=== PATIENT | female | born 1940 | race Caucasian/White ===

== ENCOUNTER → 2019-12-21 14:34 | Outpatient (CLI) | payer MEDICARE, OTHER, SELFPAY ==
--- NOTE | 2019-12-21 14:36 | DI.MRI.S_ITS ---
PROCEDURE: MR SHOULDER RT WO CON INDICATIONS: Right shoulder pain, right bicep pain TECHNIQUE: Noncontrast oblique coronal T2 fast spin echo with fat saturation, oblique sagittal T1 spin echo and T2 fast spin echo with fat saturation, axial T1 spin echo and T2 fast spin echo with fat saturation through the shoulder. COMPARISON: None. FINDINGS: Image quality: Excellent. Rotator cuff: There is diffuse increased signal evident involving the supraspinatus, infraspinatus, and subscapularis tendons with areas of low to moderate grade articular surface partial thickness tearing. No complete tears are appreciated. The teres minor tendon is intact. No significant asymmetric atrophy of the rotator cuff muscles is appreciated. Bones and bursae: No acute fracture or dislocation is evident. No suspicious osseous lesions are appreciated. There are mild degenerative changes of the glenohumeral joint with an associated small to moderate-sized glenohumeral joint effusion. Moderate degenerative changes of the acromioclavicular joint are present. A small amount of fluid is contained within the subacromial subdeltoid bursa. Capsule and soft tissues: Evaluation of the labrum and the glenohumeral ligaments is suboptimal without intra-articular contrast. However, there does appear to be a very small superior labral tear extending from approximately the 10 o'clock position of the anterosuperior labrum to the 1 o'clock position of the posterosuperior labrum. There is a full-thickness tear of the long head of the biceps tendon with prominent distal retraction beyond the bicipital groove, estimated at approximately 9-10 cm. No acute injuries are suspected involving the glenohumeral ligaments. IMPRESSION: 1. Full-thickness tear of the long head of the biceps tendon with prominent distal retraction. 2. Small superior labral tear. 3. Low to moderate grade articular surface partial thickness tearing of the major rotator cuff tendons with corresponding tendinopathy, as described. 4. Mild to moderate degenerative changes of the right shoulder joints. 5. Glenohumeral joint effusion. 6. Small amount of fluid within the subacromial subdeltoid bursa is present. Dictated by: Camron Ly M.D. on 12/21/2019 at 14:50 Approved by: Camron Ly M.D. on 12/21/2019 at 14:55
== END ==
PROVIDERS: PCP Nurse Practitioner; Referring Provider Nurse Practitioner; Visit Provider Nurse Practitioner
DX: M25.511 Pain in right shoulder (principal); S46.111A Strain of muscle, fascia and tendon of long head of biceps, right arm, initial encounter; S43.431A Superior glenoid labrum lesion of right shoulder, initial encounter; M25.411 Effusion, right shoulder
CPT/HCPCS: 73221

== ENCOUNTER → 2021-01-30 13:13 | Outpatient (CLI) | payer MEDICARE, OTHER, SELFPAY ==
--- NOTE | 2021-01-30 | DI.MG.S_ITS ---
BILATERAL DIGITAL DIAGNOSTIC MAMMOGRAM 3D/2D: 01/30/2021 CLINICAL: Short term follow up, due bilateral. Comparison is made to exams dated: 07/21/2020 mammogram, 12/07/2019 mammogram, and 04/08/2017 mammogram - outside location. There are scattered fibroglandular elements in both breasts. No significant masses, calcifications, or other findings are seen in either breast. IMPRESSION: INCOMPLETE: NEEDS ADDITIONAL IMAGING EVALUATION There is no abnormality seen in the left breast to correspond with the area of clinical concern and previously described mammography finding at the lower inner quadrant of the left breast, however, ultrasound is recommended to confirm resolution of the previously described sonographic finding correlating to this region. This is scheduled to immediately follow this exam. This exam was interpreted at Station ID: [id number]. NOTE: For mammograms, a report in lay terms will be sent to the patient. Approximately 15% of breast malignancies will not be visualized mammographically. In the management of a palpable breast mass, a negative mammogram must not discourage biopsy of a clinically suspicious lesion. Electronically Signed By: Arturo Sylvester M.D. aty/:01/30/2021 15:03:48 ACR BI-RADS Category 0: Incomplete [id number]
--- NOTE | 2021-01-30 13:16 | DI.US.S_ITS ---
ULTRASOUND OF LEFT BREAST: 01/30/2021 CLINICAL: Patient returns for a 6 month follow up of the left breast. Comparison is made to exams dated: 01/30/2021 mammogram - [facility], 07/21/2020 mammogram, 07/21/2020 ultrasound, 12/07/2019 ultrasound, 12/07/2019 mammogram, and 04/08/2017 mammogram - outside location. Color flow and real-time ultrasound of the left breast were performed. Herrera scale images of the real-time examination were reviewed. No significant abnormalities were seen sonographically in the left breast. Previously described irregular fluid collection at the 9 o'clock position has resolved. IMPRESSION: NEGATIVE There is no sonographic evidence of malignancy. There is no abnormality seen in the left breast to correspond with the area of clinical concern and previous ultrasound finding at 9 o'clock, however, recommend clinical follow up for persistent or recurrent symptoms, or development of any clinically suspicious findings. A 1 year screening mammogram is recommended. Findings and recommendations were conveyed to the patient during today's evaluation. This exam was interpreted at Station ID: [id number]. Electronically Signed By: Arturo Sylvester M.D. aty/:01/30/2021 15:07:38 Ultrasound BI-RADS: 1 Negative
== END ==
PROVIDERS: PCP Nurse Practitioner; Referring Provider Nurse Practitioner; Visit Provider Nurse Practitioner
DX: R92.8 Other abnormal and inconclusive findings on diagnostic imaging of breast (principal)
CPT/HCPCS: 76642; 77065; 77066; G0279

== ENCOUNTER → 2022-12-11 13:35 | Outpatient (CLI) | payer MEDICARE, OTHER, SELFPAY | PROVIDERS: PCP Nurse Practitioner; Referring Provider Nurse Practitioner; Visit Provider Nurse Practitioner | DX: R00.2 Palpitations (principal); R42 Dizziness and giddiness | CPT/HCPCS: 93242 ==

== ENCOUNTER → 2022-12-20 | Outpatient (CLI) | payer MEDICARE, OTHER, SELFPAY ==
--- NOTE | 2022-12-20 | DI.ECHO.S_ITS ---
[facility] +---------+ : : [address] : : : : [id number] : : : : Phone: [phone]+ Echocardiogram Report + + :Name: CARLOTA SIMPSON Study Date: 12/20/2022 Height: 60 in : :[facility] ReadingLocation: Weight: 142 lb : : Gender: Female BSA: 1.6 m2 : :: 1940 Age: 82 yrs BP: 167/93 mmHg: :Reason For Study: Dizziness, Palpitations : :Ordering Physician: SUE, : :PAUL Performed By: Deborah Rodríguez : :Referring: PAUL ROGERS : + + Interpretation Summary The left ventricle is normal in size. Left ventricular systolic function is normal. The ejection fraction is estimated to be 60-65%. There are no obvious focal wall motion abnormalities noted but poor endocardial definition reduces the sensitivity for the detection of such. Diastolic parameters suggest a relaxation abnormality of the left ventricle, consistent with probable normal filling pressures. The right ventricle is normal size. The right ventricular systolic function is normal. The right ventricular systolic pressure is estimated to be at least 23 mmHg based on an estimated right atrial pressure of 3 mm Hg. The left atrial size is normal. Right atrium is small. There is mild to moderate mitral regurgitation. There is no other significant valvular heart disease. The aortic root is normal size. Procedure: A two-dimensional transthoracic echocardiogram with color flow and Doppler was performed. The study quality was technically adequate. There is no prior echocardiogram noted for this patient. The patient was in normal sinus rhythm during the exam. Left Ventricle: The left ventricle is normal in size. Left ventricular systolic function is normal. The ejection fraction is estimated to be 60-65%. There are no obvious focal wall motion abnormalities noted but poor endocardial definition reduces the sensitivity for the detection of such. Diastolic parameters suggest a relaxation abnormality of the left ventricle, consistent with probable normal filling pressures. Right Ventricle: The right ventricle is normal size. The right ventricular systolic function is normal. Atria: The left atrial size is normal. Right atrium is small. There is no Doppler evidence for an interatrial shunt. Mitral Valve: The mitral valve leaflets are mildly calcified. The mitral valve mean gradient is 3 mmHg. There is mild to moderate mitral regurgitation. Aortic Valve: The aortic valve is trileaflet. The aortic valve opens well. There is no aortic valve stenosis. No aortic regurgitation is present. Tricuspid Valve: The tricuspid valve is normal. There is no tricuspid stenosis. There is trace tricuspid regurgitation. The right ventricular systolic pressure is estimated to be at least 23 mmHg based on an estimated right atrial pressure of 3 mm Hg. Pulmonic Valve: The pulmonic valve leaflets are thin and pliable; valve motion is normal. There is no pulmonic valvular stenosis. There is trace pulmonic regurgitation. There is no other significant valvular heart disease. Great Vessels: The aortic root is normal size. The ascending aorta is normal in size. The pulmonary artery is normal size. The IVC is of normal diameter and collapses greater than 50% with a sniff. This suggests a low right atrial pressure of 3 mm Hg. Pericardium/ Pleura There is no pericardial effusion. There is no pleural effusion. MMode/2D Measurements & Calculations LVIDd: 4.7 cm LVOT diam: 1.6 cm LVIDs: 3.6 cm Ao root diam: 2.5 cm FS: 23.4 % asc Aorta Diam: 3.1 cm IVSd: 0.90 cm LVPWd: 0.80 cm LV mays. diameter/BSA (cm/m^2): 2.9 LV sys. diameter/BSA (cm/m^2): 2.2 LA A4 area: 14.5 cm2 RA long axis: 3.4 cm RA area: 6.5 cm2 RA vol: 10.5 ml RA : 6.5 ml/m2 RVD1 (basal): 3.3 cm LVLs ap4: 4.5 cm LVLd ap2: 5.6 cm TAPSE_phl: 2.7 cm LVLs ap2: 4.6 cm Doppler Measurements & Calculations Ao V2 max: 159.0 cm/sec LVOT Max Roel: 124.0 cm/sec Ao V2 mean: 91.6 cm/sec LV V1 max P.2 mmHg Ao max P.0 mmHg LV V1 VTI: 27.5 cm Ao mean P.0 mmHg ORION(I,D): 1.6 cm2 Ao V2 VTI: 33.8 cm ORION(V,D): 1.6 cm2 sev ratio: 0.81 ORION indexed to BSA (cm^2/m^2): 1.0 MV E max roel: 103.0 cm/sec TR max roel: 226.0 cm/sec MV A max roel: 114.0 cm/sec TR max P.4 mmHg MV E/A: 0.90 PA V2 max: 106.0 cm/sec Med Peak E' Roel: 6.7 cm/sec PA V2 mean: 70.6 cm/sec E/E' med: 15.4 PA mean P.0 mmHg Lat Peak E' Roel: 6.5 cm/sec PA pr(Accel): 38.5 mmHg E/E' lat: 15.9 E/e' average: 15.7 MV dec time: 0.26 sec MVA(VTI): 1.2 cm2 MV V2 mean: 77.4 cm/sec SV(LVOT): 55.3 ml MV mean P.0 mmHg MV V2 VTI: 47.4 cm AV VR_phl: 0.94 MV P1/2t-pr_phl: 75.0 msec ORION(VTI)/BSA_phl: 1.0 Reading Physician:04:44 PM
--- NOTE | 2022-12-21 02:39 | DI.NM.S_ITS ---
DATE OF SERVICE: 12/20/2022 PROCEDURE: Pharmacological perfusion study. INDICATIONS: Chest pain with underlying hypertension, hyperlipidemia. RADIOPHARMACEUTICAL: 27.5 millicurie technetium-99m Myoview IV was injected at stress and 9.6 millicurie technetium-99m Myoview IV was injected at rest. CARDIAC STRESS: The patient underwent IV Lexiscan perfusion study under the supervision of an attending staff using standard IV Lexiscan protocol. She remained hemodynamically stable. Baseline blood pressure 155/75. Baseline rhythm sinus with some nonspecific ST-T changes and first-degree AV block. During stress, no convincing new ischemic changes seen. Rare PVCs. The patient had minimal dyspnea and substernal jaw and chest pressure during Lexiscan infusion which lasted about 30 seconds. RAW DATA: There is a breast shadow seen. GATED STUDY: Stress LV ejection fraction 87% without any obvious wall motion abnormalities. Resting end-diastolic volume 82 mL. TID ratio 0.94, which is within normal limits. Lung/heart ratio 0.35, which is within normal limits. MYOCARDIAL PERFUSION SCAN: Stress supine and resting supine images were compared to each other. There is no stress prone images. Stress supine and resting supine images revealed predominantly fixed, small size, mildly decreased perfusion of anteroapex without any reversible ischemia. CONCLUSION: The patient has small size fixed anteroapical defect. There are no prone images. Large breast shadow seen during raw images. Anteroapical segments moving well. There are no obvious wall motion abnormalities. The stress LV ejection fraction 87%. Hence, most likely due to breast attenuation artifact. There is no reversible ischemia; however, one cannot rule out the possibility of small nontransmural myocardial infarction of anteroapex. Overall, low-risk myocardial perfusion scan. Correlate clinically. Terrie Viera - DUSTIN/margarette/jazzy doc#: [id number]/job#: [id number] dd: 12/20/2022 17:22:00 dt: 12/21/2022 02:31:00 DICTATING MD/COPIES TO: Steven Balderas MD COPIES MNE: MONA;
== END ==
PROVIDERS: PCP Nurse Practitioner; Referring Provider Nurse Practitioner; Visit Provider Nurse Practitioner
DX: I34.0 Nonrheumatic mitral (valve) insufficiency (principal); R00.2 Palpitations; R42 Dizziness and giddiness; R07.9 Chest pain, unspecified; I10 Essential (primary) hypertension; E78.5 Hyperlipidemia, unspecified
CPT/HCPCS: 78452; 93017; 93306; A9502; J2785

== ENCOUNTER → 2024-07-24 10:43 | Outpatient (CLI) | payer MEDICARE, OTHER, SELFPAY ==
--- NOTE | 2024-07-24 10:46 | DI.MRI.S_ITS ---
PROCEDURE: MR LUMBAR SPINE WO CON INDICATIONS: lumbar stenosis with neurogenic claudication TECHNIQUE: Noncontrast sagittal T1 spin echo and T2 fast echo, sagittal STIR, and T2 fast spin echo through the lumbar spine. In cases with scoliosis, additional coronal T2 fast spin echo may be performed. COMPARISON: None. FINDINGS: Image quality: Excellent. Alignment and Curvature: Grade 1 anterior spondylolisthesis L3-4 and L4-5 Bone Marrow: Linear marrow edema involving the 2nd sacral element reflects sacral fracture. Degenerative endplate changes noted in the lumbar spine. Spinal Cord: Conus medullaris terminates at the L1 level. Visualized cord demonstrates normal signal and size. Paraspinous Soft Tissues: No paravertebral masses. T12-L1: Normal appearance. L1-L2: Normal appearance. L2-L3: Disc bulge and arthropathy. Mild central stenosis. Moderate left and mild right foraminal stenosis L3-L4: Disc bulge and arthropathy. Moderate central stenosis. Moderate bilateral foraminal stenosis L4-L5: Disc bulge and arthropathy. Mild central stenosis. No foraminal stenosis L5-S1: Disc bulge and arthropathy. No central or foraminal stenosis IMPRESSION: Focal edema in the 2nd sacral element consistent with sacral fracture. Consider follow-up CT confirmation. Multilevel degenerative disc disease and arthropathy results in varying degrees of central and foraminal stenosis including moderate central and foraminal stenosis L3-4. Grade 1 degenerative spondylolisthesis L3-4 and L4-5 Approved by: John Tyler M.D. on 07/26/2024 at 18:15
== END ==
LOC: MRI 10:45
PROVIDERS: Referring Provider Physical Medicine & Rehabilitation; Visit Provider Physical Medicine & Rehabilitation
DX: M43.16 Spondylolisthesis, lumbar region (principal); M48.062 Spinal stenosis, lumbar region with neurogenic claudication; M51.369 Other intervertebral disc degeneration, lumbar region without mention of lumbar back pain or lower extremity pain; M51.379 Other intervertebral disc degeneration, lumbosacral region without mention of lumbar back pain or lower extremity pain; M47.816 Spondylosis without myelopathy or radiculopathy, lumbar region; M47.817 Spondylosis without myelopathy or radiculopathy, lumbosacral region
CPT/HCPCS: 72148

== ENCOUNTER 2024-08-24 10:17 | Outpatient (CLI) | payer MEDICARE, OTHER, SELFPAY ==
[2024-08-24] VITALS (8 sets, daily range): BP systolic 142–199; BP diastolic 73–90; PULSE 63–71; RESP 13–18; TEMP 36.3; O2SAT 95–100
[2024-08-24] MEDS: MIDAZOLAM 2 MG/2 ML VIAL IV (11:12)
[2024-08-24] MEDS: BUPIVACAINE 0.25% (PF) VIAL 2 ML INJ (11:18)
[2024-08-24] MEDS: iopamidoL 15 ML VIAL 3 ML INJ (11:18)
[2024-08-24] MEDS: BETAMETHASONE 30 MG/5 ML MDV 12 MG INJ (11:18)
[2024-08-24] MEDS: BETAMETHASONE 30 MG/5 ML MDV 6 MG INJ (11:19)
--- NOTE | 2024-08-24 11:29 | P.PCN_ITS ---
Date/Time/Diagnoses Date of procedure: 08/24/24 Time of procedure: 11:29 Pre-procedure diagnosis: 1. HNP WITH RADICULAR FEATURES, 2. MULTILEVEL CENTRAL STENOSIS, Post-procedure diagnosis: same Procedure Notes Procedure: 1. FLUOROSCOPICALLY GUIDED CONTRAST CONTROLLED INTERLAMINAR EPIDURAL STEROID INJECTION -L4/5 Indications: Terrie is referred for treatment of Bilateral Foraminal Stenosis R>L LE symptoms. Physician: Ramin Orellana Total Fluoroscopy time (seconds): 7 Total sedation minutes: 13 Complications: none Procedure in detail & Post-procedure care: FINDINGS Multilevel Central Spinal Stenosis with Nerve Root Compression DESCRIPTION OF PROCEDURE Fluoroscopically guided, contrast-controlled L4/5 translaminar epidural steroid injection. Following review of allergy and review of potential side effects and complications, including, but not necessarily limited to, infection, allergic reaction, local tissue breakdown, temporary as well as permanent nerve injury, paralysis, stroke and possible , the patient indicated that the patient understood and agreed to proceed. An informed consent document was signed by the patient, witnessed by a nurse, and placed in the patient's chart. Additionally, other treatment options including modalities, medications, and physical therapy were reviewed with the patient. After review of previous anaesthesic history and IV conscious sedation the patient was deemed safe to proceed with today?s procedure with IV conscious sedation as ASA class II designation. Safety time-out was performed to confirm patient ID, procedure to be performed and site of procedure. IV sedation was accomplished with a combination of 2mg of Versed was administered by the RN after DO order, titrated to patient comfort during the course of the procedure while the patient remained responsive to all verbal commands In the prone position, following sterile prep and drape of the lumbar region, the L4/5 translaminar space was identified fluoroscopically. The skin was anesthetized via a 25-gauge, 1.5inch needle with 1% lidocaine solution. At this point, a 22-gauge short bevel spinal needle was atraumatically introduced and advanced under fluoroscopic guidance into the region of the L4/5 translaminar space. Depth was confirmed on lateral view. Radiological data, including multiple fluoroscopic views of the lumbar spine, reveal a spinal needle at the L4/5 translaminar space. Lateral views then show placement of the needle in the epidural space. Subsequent views show contrast material flowing superiorly and inferiorly in the epidural space. No vascular or intrathecal uptake is observed. At this point, using loss of resistance technique with saline and air, the epidural space was entered. This was confirmed following negative aspiration with injection of approximately 1.5cc of Isovue 200, showing excellent epidural flow without vascular or intrathecal uptake. At this point, 1cc of 1% lidocaine solution combined with 3cc or 18mg betamethasone was injected without incident. The patient tolerated the procedure well without signs or symptoms of complications prior to transfer to the recovery area continued monitoring without incident. The patient was then transferred to the recovery area where they were observed for an appropriate period of time after the injection. The patient reported a VAS score of 8 prior to the procedure and a post- procedure VAS of 1. POST OP INSTRUCTIONS The patient was provided a Pain Log to continue to record their response to the target-specific procedure prior to follow-up visit with their referring physician. Additionally, specific post-injection care instructions and a contact number to our office were provided if concerns arise regarding possible complications associated with the procedure are suspected.
== END 2024-08-24 11:45 | disposition home or self-care (01) ==
PROVIDERS: Referring Provider Physical Medicine & Rehabilitation; Visit Provider Physical Medicine & Rehabilitation
DX: M51.16 Intervertebral disc disorders with radiculopathy, lumbar region (principal); M48.061 Spinal stenosis, lumbar region without neurogenic claudication
CPT/HCPCS: 62323; 99152; J0702; J2250; J3490

== ENCOUNTER 2024-10-07 13:16 | Outpatient (CLI) | payer MEDICARE, OTHER, SELFPAY ==
[2024-10-07] VITALS (10 sets, daily range): BP systolic 115–186; BP diastolic 73–84; PULSE 62–72; RESP 14–19; TEMP 36.6; O2SAT 96–100
[2024-10-07] MEDS: MIDAZOLAM 2 MG/2 ML VIAL IV (13:58)
[2024-10-07] MEDS: iopamidoL 15 ML VIAL 3 ML INJ (14:04)
[2024-10-07] MEDS: BUPIVACAINE 0.5% (PF) 10 ML VIAL 5 ML INJ (14:04)
[2024-10-07] MEDS: LIDOCAINE 1% 20 ML 5 ML INJ (14:04)
[2024-10-07] MEDS: MIDAZOLAM 2 MG/2 ML VIAL 1 MG IV (14:08)
--- NOTE | 2024-10-07 14:27 | P.PCN_ITS ---
Date/Time/Diagnoses Date of procedure: 10/07/24 Time of procedure: 14:27 Pre-procedure diagnosis: FACET ARTHROPATHY Post-procedure diagnosis: same Procedure Notes Procedure: 1. BILATERAL L3, L4 AND L5 DIAGNOSTIC MB BLOCKS Indications: Terrie is referred by Dr. Lewis for treatment of Bilateral Axial LBP. Physician: Ramin Orellana Total Fluoroscopy time (seconds): 12 Total sedation minutes: 20 Complications: none Procedure in detail & Post-procedure care: DESCRIPTION OF PROCEDURE Fluoroscopically guided, contrast-controlled bilateral L3, L4 AND L5 medial branch blocks with 0.5cc of 0.5% Marcaine. Following review of allergy and review of potential side effects and complications, including, but not necessarily limited to, infection, allergic reaction, local tissue breakdown, nerve injury, paralysis, stroke and possible , the patient indicated that the patient understood and agreed to proceed. An informed consent document was signed by the patient, witnessed by a nurse, and placed in the patient's chart. After review of previous anaesthesic history and IV conscious sedation the patient was deemed safe to proceed with today's procedure with IV conscious sedation as ASA class II designation. Safety time-out was performed to confirm patient ID, procedure to be performed and site of procedure. IV sedation was accomplished with a combination of 3mg of Versed was administered by the RN after DO order, titrated to patient comfort during the course of the procedure while the patient remained responsive to all verbal commands In the prone position, following sterile prep and drape of the lumbar region, the right L3, L4 AND L5 anatomical location of the medial branch of the dorsal ramus was identified fluoroscopically. Subsequently an anesthetic skin wheal using 1% lidocaine solution was initiated at each of the anatomical spots. Subsequently then a 22-gauge 3.5-inch spinal needle was atraumatically introduced and advanced under fluoroscopic guidance at each of the corresponding sites at the right L3, L4 and L5 MB. After negative aspiration, 0.2cc of Isovue 200 was injected, confirming placement without vascular or intrathecal uptake. Subsequently then 0.5cc of 0.5% Marcaine solution was injected at each of the corresponding sites at the right L3, L4 and L5 medial branch locations. The identical procedure was replicated on the left. The patient tolerated the proc edure well without signs or symptoms of complications. The patient tolerated the procedure well without signs or symptoms of complications prior to transfer to the recovery area continued monitoring without incident. Post-procedure, the patient was monitored initiating provocative activities to measure the amount of relief from block of the facetogenic pain. The patient reported a VAS of 7 prior to the procedure and a post-procedure VAS of 1. It has been a pleasure to assist in the diagnostic and therapeutic care of your patient. POST OP INSTRUCTIONS The patient was provided with a Pain Log to complete over the next several hours and subsequent days prior to the patient's follow up with the ordering physician. If the patient has artificial cherry maker relief to the solution applied, then they may be a candidate for medial branch rhizotomy. The patient is aware, was provided, once again, with a Pain Log and will follow up with the referring physician for review and clinical correlation
== END 2024-10-07 14:41 | disposition home or self-care (01) ==
LOC: RAD 13:17
PROVIDERS: PCP Student in an Organized Health Care Education/Training Program; Referring Provider Student in an Organized Health Care Education/Training Program; Visit Provider Physical Medicine & Rehabilitation
DX: M47.816 Spondylosis without myelopathy or radiculopathy, lumbar region (principal)
CPT/HCPCS: 64493; 64494; 99152; J2250

== ENCOUNTER 2024-11-04 10:14 | Outpatient (CLI) | payer MEDICARE, OTHER, SELFPAY ==
[2024-11-04] VITALS (9 sets, daily range): BP systolic 128–178; BP diastolic 67–86; PULSE 61–72; RESP 14–18; TEMP 36.1; O2SAT 97–100
[2024-11-04] MEDS: MIDAZOLAM 2 MG/2 ML VIAL IV ×2 (11:40→11:45)
[2024-11-04] MEDS: LIDOCAINE 1% 20 ML 5 ML INJ (11:49)
[2024-11-04] MEDS: iopamidoL 15 ML VIAL 3 ML INJ (11:50)
[2024-11-04] MEDS: LIDOCAINE 2% INJ MDV 20ML 5 ML INJ (11:50)
--- NOTE | 2024-11-04 12:03 | P.PCN_ITS ---
Date/Time/Diagnoses Date of procedure: 11/04/24 Time of procedure: 12:03 Pre-procedure diagnosis: 1. FACET ARTHROPATHY Post-procedure diagnosis: same Procedure Notes Procedure: 1. BILATERAL L3, L4 AND L5 DIAGNOSTIC MB BLOCKS Indications: Terrie is referred by Dr. Lewis for treatment of Bilateral Axial LBP. Physician: Ramin Orellana Total Fluoroscopy time (seconds): 14 Total sedation minutes: 15 Complications: none Procedure in detail & Post-procedure care: DESCRIPTION OF PROCEDURE Fluoroscopically guided, contrast-controlled bilateral L3, L4 and L5 medial branch blocks with 0.5cc of 2% Lidocaine. Following review of allergy and review of potential side effects and complications, including, but not necessarily limited to, infection, allergic reaction, local tissue breakdown, nerve injury, paralysis, stroke and possible , the patient indicated that the patient understood and agreed to proceed. An informed consent document was signed by the patient, witnessed by a nurse, and placed in the patient's chart. After review of previous anaesthesic history and IV conscious sedation the patient was deemed safe to proceed with today's procedure with IV conscious sedation as ASA class II designation. Safety time-out was performed to confirm patient ID, procedure to be performed and site of procedure. IV sedation was accomplished with a combination of 4mg of Versed was administered by the RN after DO order, titrated to patient comfort during the course of the procedure while the patient remained responsive to all verbal commands In the prone position, following sterile prep and drape of the lumbar region, the right L3, L4 and L5 anatomical location of the medial branch of the dorsal ramus was identified fluoroscopically. Subsequently an anesthetic skin wheal using 1% lidocaine solution was initiated at each of the anatomical spots. Subsequently then a 22-gauge 3.5-inch spinal needle was atraumatically introduced and advanced under fluoroscopic guidance at each of the corresponding sites at the right L3, L4 and L5 MB. After negative aspiration, 0.2cc of Isovue 200 was injected, confirming placement without vascular or intrathecal uptake. Subsequently then 0.5cc of 2% Lidocaine solution was injected at each of the corresponding sites at the right L3, L4 and L5 medial branch locations. The identical procedure was replicated on the left. The patient tolerated the pr ocedure well without signs or symptoms of complications. The patient tolerated the procedure well without signs or symptoms of complications prior to transfer to the recovery area continued monitoring without incident. Post-procedure, the patient was monitored initiating provocative activities to measure the amount of relief from block of the facetogenic pain. The patient reported a VAS of 7 prior to the procedure and a post-procedure VAS of 1. It has been a pleasure to assist in the diagnostic and therapeutic care of your patient. POST OP INSTRUCTIONS The patient was provided with a Pain Log to complete over the next several hours and subsequent days prior to the patient's follow up with the ordering physician. If the patient has carry in worker relief to the solution applied, then they may be a candidate for medial branch rhizotomy. The patient is aware, was provided, once again, with a Pain Log and will follow up with the referring physician for review and clinical correlation
== END 2024-11-04 12:25 | disposition home or self-care (01) ==
PROVIDERS: PCP Student in an Organized Health Care Education/Training Program; Referring Provider Physical Medicine & Rehabilitation; Visit Provider Physical Medicine & Rehabilitation
DX: M47.816 Spondylosis without myelopathy or radiculopathy, lumbar region (principal)
CPT/HCPCS: 64493; 64494; 99152; J2250

== ENCOUNTER 2024-12-28 10:24 | Outpatient (CLI) | payer MEDICARE, OTHER, SELFPAY ==
[2024-12-28] VITALS (13 sets, daily range): BP systolic 141–187; BP diastolic 60–85; PULSE 64–74; RESP 15–19; TEMP 36.1; O2SAT 95–100
[2024-12-28] MEDS: MIDAZOLAM 2 MG/2 ML VIAL IV ×3 (11:58→12:17)
[2024-12-28] MEDS: BUPIVACAINE 0.5% (PF) 10 ML VIAL 5 ML INJ (12:06)
[2024-12-28] MEDS: LIDOCAINE 1% 20 ML 5 ML INJ (12:07)
--- NOTE | 2024-12-28 12:43 | P.PCN_ITS ---
Date/Time/Diagnoses Date of procedure: 12/28/24 Time of procedure: 12:43 Pre-procedure diagnosis: 1. RECALCITRANT FACET ARTHROPATHY Post-procedure diagnosis: same Procedure Notes Procedure: 1. BILATERAL L3, L4 AND L5 MEDIAL BRANCH RADIOFREQUENCY NEUROTOMY Indications: Terrie is referred by Dr. Toribio for treatment of facet arthropathy. Physician: Ramin Orellana Total Fluoroscopy time (seconds): 17 Total sedation minutes: 37 Complications: none Procedure in detail & Post-procedure care: DESCRIPTION OF PROCEDURE Bilateral L3, L4 and L5 medial branch radiofrequency neurotomy The patient is well known to this clinic having undergone previous facet injections with good but temporary relief. The patient has experienced appropriate, concordant relief with previous facet and median branch blocks but the patient's pain has been recalcitrant to further conservative measures. Therefore, based upon the patient's relief and persistent symptoms, the patient is considered an appropriate candidate for facet rhizotomy. All of the patient's questions regarding the risks versus benefits of the procedure, including, but not limited to, bleeding, infection, temporary as well as lasting nerve injury, paralysis, stroke, and , as well treatment alternatives were answered to satisfaction. After obtaining informed consent, denial of pertinent drug allergies, as well as being made aware of the potential risks of bleeding, infection, spinal cord trauma, paralysis, temporary and permanent nerve damage, seizure, stroke, and possible , the patient was brought to the fluoroscopy suite and positioned prone on the fluoroscopy table. After review of previous anaesthesic history and IV conscious sedation the patient was deemed safe to proceed with today's procedure with IV conscious sedation as ASA class II designation. Safety time-out was performed to confirm patient ID, procedure to be performed and site of procedure. IV sedation was accomplished with a combination of 6mg of Versed administered by the RN after DO order, titrated to patient comfort during the course of the procedure while the patient remained responsive to all verbal commands. The lumbar region was prepped in usual sterile fashion and covered with a fenestrated drape in the usual sterile fashion. Appropriate monitors applied including pulse oximeter, pulse, and blood pressure for regular monitoring throughout the procedure. After local infiltration using 1% lidocaine, under fluoroscopic guidance, a 10- cm RF insulated needle with a 10-mm active tip was positioned parallel to the junction of the right the superior articulating process where the L5 medial branch resides. Needle placement was confirmed with motor stimulation of .5v on the right which produced local stimulation without radicular component. The stimulation was then increased to 2v with, once again, only local multifidus stimulation without radicular component. The needle was then removed and the identical procedure was performed along the length of the right L4 medial branch with motor stimulation at .7v on the right. The identical procedure was once again performed along the length of the right L3 and medial branch with motor stimulation of .5v on the right. The medial branches were then anesthetised with 0.5% marcaine. This was then followed by two discreet lesions performed at 80 degrees Celsius for 90 seconds each. The identical procedures were repeated on the left. The patient tolerated the procedure well without signs or symptoms of complications prior to transfer to the recovery area continued monitoring witho ut incident. The patient was then transferred to the recovery area where they were observed for an appropriate period of time after the injection. The patient reported a VAS score of 8 prior to the procedure and a post-procedure VAS of 1. POST OP INSTRUCTIONS The patient was provided a Pain Log to continue to record the patient's response to the target-specific procedure prior to the patient's follow-up visit with the referring physician. Additionally, specific post-injection care instructions and a contact number to our office were provided if concerns arise regarding possible complications associated with the procedure are suspected.
== END 2024-12-28 13:04 | disposition home or self-care (01) ==
LOC: RAD 10:25
PROVIDERS: PCP Student in an Organized Health Care Education/Training Program; Referring Provider Physical Medicine & Rehabilitation; Visit Provider Physical Medicine & Rehabilitation
DX: M47.816 Spondylosis without myelopathy or radiculopathy, lumbar region (principal)
CPT/HCPCS: 64635; 64636; 99152; 99153; J2250